=== PATIENT | male | born 1945 | race Caucasian/White ===

== ENCOUNTER → 2017-11-23 | Outpatient (CLI) | payer OTHER, MEDICARE | LOC: NUC 11:37 | DX: I48.1 Persistent atrial fibrillation (principal); I48.3 Typical atrial flutter; E78.5 Hyperlipidemia, unspecified; E11.9 Type 2 diabetes mellitus without complications ==

== ENCOUNTER 2018-06-12 11:11 | Observation (INO) | payer OTHER, MEDICARE ==
[~2018-06-12] VITALS: Ht 177.8 cm; Wt 82.7 kg
[2018-06-12] VITALS (11 sets, daily range): BP systolic 123–154; BP diastolic 70–94
--- NOTE | ~2018-06-12 | P ---
[facility] [place] [address] PROCEDURE REPORT Name: LINO MCDONALD Brittany Room #: 219-P [facility] Vinicio Rodrigez#: [id number] Admission: 06/12/18 Attend Phys: Donald Denson MD Discharge: 06/13/18 Date of : 49 Report #: [id number] THIS REPORT FOR: //name// CC: FAM unknown Donald Denson PREOPERATIVE DIAGNOSIS: Typical atrial flutter. POSTOPERATIVE DIAGNOSIS: Typical atrial flutter. PROCEDURES PERFORMED: 1. SVT ablation, CPT code 09040. 2. EP with left atrial pacing recording, CPT code 67114. 3. Program stimulation and pacing after IV, CPT code 31175. 4. 3D mapping EP, CPT code 36230. HISTORY OF PRESENT ILLNESS: The patient is a 72-year-old with history of atrial fibrillation who underwent prior AFib ablation; at which time, he was also found to have typical atrial flutter and typical AV esla reentrant tachycardia. He underwent ablation of all 3 arrhythmias. When I recently saw him in clinic, he was noted to be back in atrial flutter. He is here for a repeat atrial flutter ablation. ANESTHESIA: The patient underwent MAC anesthesia with no anesthesia related complications. DESCRIPTION OF PROCEDURE: The patient underwent informed consent. We discussed the details of the procedure including the risks which include, but not limited to, bleeding, vascular damage, stroke, DC as well as damage to the [place] conduction system requiring permanent pacemaker. He understood these risks and is willing to proceed. The patient was brought to the EP laboratory in a fasting and unsedated state and prepped and draped in a sterile fashion. I obtained access to the right femoral vein x 3, placing an 8-Cameroonian and two 7-Cameroonian short sheaths using the modified Seldinger technique. Next, under fluoroscopy, I placed a decapolar catheter into the coronary sinus and a live wire duo-decapolar catheter into the right atrium. Since I saw the patient apparently had converted to sinus rhythm, the patient was in sinus rhythm with a sinus cycle length of 1030 milliseconds, [place] interval 170 milliseconds, QRS duration 100 milliseconds, a QT interval of 425 milliseconds. Based on pacing from both medial and lateral to the prior ablation line, there was no evidence of bidirectional block. The transisthmus conduction time while pacing from the CS and measured to Halo 1-2 was 118 milliseconds. Differential pacing from Halos 1-2 and 3-4 were also consistent with lack of lateral to medial block. Next, I placed a ramp sheath and a [employer] ablation catheter into the right atrium. I performed ablation along the cavotricuspid isthmus and created another continuous line. I [address] [address] PROCEDURE REPORT Name: LINO MCDONALD Room #: 219-P [facility] Rodrigez#: [id number] Admission: 06/12/18 Attend Phys: Donald Denson MD Discharge: 06/13/18 Date of : 49 Report #: [id number] performed a series of 2-3 lines along this area and performed additional ablation mostly along the distal third of the isthmus where there continued to be some significant atrial electrograms. Post-ablation medial to lateral block demonstrated a transisthmus conduction time of 145-150 milliseconds. Differential pacing from the Halo 1-2 and 3-4 was also consistent with a lateral to medial block with transisthmus conduction time of 140 milliseconds. There was a double potential along the ablation line of 155 milliseconds when I paced from CS 910. Post-ablation, I performed a basic EP study. AV block was noted at 400 milliseconds. AV elsa ERP was noted at 290 milliseconds at a 500-millisecond basic drive cycle length. The sinus node recovery time was 1130 milliseconds, pacing at 400 milliseconds. Isoproterenol infusion was initiated at 2 mcg per minute and AV block was noted at 340 milliseconds. AV elsa ERP was noted at 340 milliseconds at a 400-millisecond basic drive cycle length. There was no evidence of recurrent typical AV elsa reentrant tachycardia, which was successfully ablated during the last procedure. There were no other forms of tachycardia and the transisthmus conduction time was stable with no recurrent conduction across the line. Post-ablation, the patient was in sinus rhythm with a sinus cycle length of 825 milliseconds, [place] interval 175 milliseconds, QRS duration 95 milliseconds, QT interval 410 milliseconds. As such, all catheters and sheaths were pulled. Hemostasis was obtained and the patient awoke neurologically and hemodynamically intact. CONCLUSIONS: 1. Successful ablation for typical atrial flutter with evidence of bidirectional block. 2. Normal SA elsa function. 3. Normal AV elsa function. 4. Normal His-Purkinje function. 5. No inducible arrhythmias on or off isoproterenol. By: [id number] Donald Denson MD /nt
[~2018-06-12 11:11] MED LIST: ACYCLOVIR 400400 MG PO; HUMALOG100 UNIT/1 SUBQ; LANTUS SUBQ; PRADAXA150 MG PO; PRADAXA75 MG PO; PROTONIX40 M1 PO; SOTALOL 120 MG120 M1 PO
[2018-06-12 11:52] LABS: BASOPHILS 0.7 % (0.0-2.0); HEMATOCRIT 48.3 % (42.0-52.0); HEMOGLOBIN 16.2 gm/dL (14.0-18.0); LYMPHOCYTES 16.5 % (24.0-44.0); MCH 31.4 pg (26.0-34.0); MCHC 33.5 g/dL (28.0-37.0); MCV 93.6 fL (80.0-100.0); PLATELET COUNT 153 thou/uL (150-400); POLYS 67.8 % (36.0-66.0); RBC 5.16 mil/uL (4.50-6.00); RDW 14.1 % (10.5-14.5); WBC 5.9 thou/uL (4.0-11.0)
[2018-06-12 11:59] LABS: CALCIUM 9.2 mg/dL (8.5-10.1); CREATININE 1.3 mg/dL (0.7-1.3); POTASSIUM 3.9 mmol/L (3.5-5.1)
[2018-06-12 12:05] LABS: ALBUMIN 3.9 g/dL (3.4-5.0); TOTAL BILIRUBIN 0.9 mg/dL (<0.1-1.0); TOTAL PROTEIN 7.5 g/dL (6.4-8.2)
[2018-06-12 12:08] LABS: APTT 30.5 Seconds (24.5-32.8); PROTIME 10.7 Seconds (9.3-11.4)
[2018-06-13 00:46] VITALS: BP 131/75
[2018-06-13 04:45] VITALS: BP 136/81
[2018-06-13 08:29] VITALS: BP 141/79
[2018-06-13 10:09] VITALS: BP 141/79
== END 2018-06-13 11:35 | disposition home or self-care (01) ==
LOC: CATH 11:11 → 2N 17:12
PROVIDERS: ADMIT Internal Medicine Cardiovascular Disease
DX: I48.3 Typical atrial flutter (principal); I48.0 Paroxysmal atrial fibrillation; I47.1 Supraventricular tachycardia; I35.0 Nonrheumatic aortic (valve) stenosis; I10 Essential (primary) hypertension; E11.9 Type 2 diabetes mellitus without complications; E78.5 Hyperlipidemia, unspecified; Z23 Encounter for immunization; Z79.4 Long term (current) use of insulin; Z79.899 Other long term (current) drug therapy; Z98.890 Other specified postprocedural states
CPT/HCPCS: 62110; 62900; 70005

== ENCOUNTER 2018-11-01 11:58 | Emergency (ER) | payer OTHER, MEDICARE ==
[~2018-11-01] VITALS: Ht 177.8 cm; Wt 83.9 kg
[2018-11-01 12:24] LABS: HEMATOCRIT 48.6 % (42.0-52.0); HEMOGLOBIN 17.1 gm/dL (14.0-18.0); MCH 32.5 pg (26.0-34.0); MCHC 35.3 g/dL (28.0-37.0); MCV 92.2 fL (80.0-100.0); RBC 5.27 mil/uL (4.50-6.00); RDW 13.7 % (10.5-14.5); WBC 6.8 thou/uL (4.0-11.0)
[2018-11-01 12:28] LABS: CALCIUM 9.5 mg/dL (8.5-10.1); CREATININE 1.2 mg/dL (0.7-1.3); POTASSIUM 4.6 mmol/L (3.5-5.1)
[2018-11-01 12:34] LABS: ALBUMIN 4.1 g/dL (3.4-5.0); DIRECT BILIRUBIN 0.1 mg/dL (<0.1-0.3); TOTAL BILIRUBIN 0.8 mg/dL (<0.1-1.0); TOTAL PROTEIN 7.8 g/dL (6.4-8.2)
[2018-11-01 12:36] LABS: APTT 43.2 Seconds (24.5-32.8); INR 1.1; PROTIME 11.8 Seconds (9.3-11.4)
[2018-11-01] MEDS ORDERED: PLAVIX 75 MG TA75 M1 PO (12:53)
[2018-11-01] MEDS ORDERED: PLAVIX 75 MG TA75 MG PO (12:53)
[2018-11-01 14:03] LABS: URINE BILIRUBIN NEGATIVE (Negative); URINE BLOOD NEGATIVE (Negative); URINE CLARITY CLEAR; URINE COLOR YELLOW; URINE GLUCOSE-RANDOM* 3+ (Negative); URINE KETONES NEGATIVE (Negative); URINE LEUKOCYTES-REFLEX NEGATIVE (Negative); URINE NITRITE-REFLEX NEGATIVE (Negative); URINE PROTEIN (DIPSTICK) NEGATIVE (Negative); URINE UROBILINOGEN 0.2 E.U./dl (0.2-1.0)
[2018-11-01 14:49] VITALS: BP 130/90
--- NOTE | 2018-11-01 15:18 | EKG ---
[place] [address] [employer] [place] [address] ELECTROCARDIOGRAM REPORT Name: ELVA MCDONALDNE Brittany [id number] ������������������ Admission: 11/01/18 ������������������ Attend Phys: Discharge: 11/01/18 ������������������ Date of : 49 Report #: [id number] ����������������������������������������������������������������� [id number] THIS REPORT FOR: //name// [facility] ED Test Date: 2018-11-01 Test Time: 12:05:30 Pat Name: LINO MCDONALD Department: Room: Gender: Timber Hewer: : 1945 Requested By: Sherri Conte Order Number: [id number] MD: Donald Denson Measurements Intervals [place] Rate: 67 P: [place]: QRS: 17 QRSD: 119 T: 54 QT: 400 QTc: 400 Interpretive Statements Atrial flutter Nonspecific intraventricular conduction delay Borderline ST elevation, anterior leads Baseline wander in lead(s) V4 No previous ECG available for comparison Electronically Signed On 11-01-2018 15:18:02 CDT by Donald Denson [email or web address] ��������������������������������������������� <ELECTRONICALLY SIGNED> ���������������������������������������� By: Donald Denson MD ��������������������������������������������� 11/01/18 1518 1204 04 Donald Denson MD /NIKO
== END 2018-11-01 14:50 | disposition home or self-care (01) ==
LOC: ER 11:58
PROVIDERS: Emergency Medicine
DX: E87.8 Other disorders of electrolyte and fluid balance, not elsewhere classified (principal); E11.9 Type 2 diabetes mellitus without complications; I10 Essential (primary) hypertension; E78.5 Hyperlipidemia, unspecified; I48.92 Unspecified atrial flutter; I48.91 Unspecified atrial fibrillation; Z79.4 Long term (current) use of insulin; Z79.899 Other long term (current) drug therapy

== ENCOUNTER → 2018-11-22 | Outpatient (CLI) | payer OTHER, MEDICARE ==
[~2018-11-22] VITALS: Ht 177.8 cm; Wt 83.9 kg
[~2018-11-22] MED LIST changes: +PLAVIX 75 MG TA75 M1 PO; +PLAVIX 75 MG TA75 MG PO
--- NOTE | ~2018-11-22 | P ---
[facility] [place] [address] PROCEDURE REPORT Name: HARRYLINO G Room #: REG [facility] Rain#: [id number] Admission: 11/22/18 ������������������ Attend Phys: Donald Denson MD Discharge: ������������������ Date of : 49 Report #: [id number] THIS REPORT FOR: //name// CC: FAM unknown Donald Denson PREOPERATIVE DIAGNOSIS: Atrial flutter. POSTOPERATIVE DIAGNOSIS: Atrial flutter. DESCRIPTION OF PROCEDURE: The patient underwent informed consent. He was prepped and draped in a sterile fashion. He had patches placed in AP position. Once sedated by the anesthesiology service, he underwent a successful 200 joule synchronized cardioversion with methodist of sinus rhythm. There were no procedure related complications. CONCLUSIONS: Successful DC cardioversion with methodist of sinus rhythm. ��������������������������������������������� ���������������������������������������� By: ��������������������������������������������� 1657 0625 Donald Denson MD /nt
[2018-11-22 11:57] VITALS: BP 145/84
[2018-11-22 12:09] LABS: HEMATOCRIT 48.4 % (42.0-52.0); HEMOGLOBIN 16.7 gm/dL (14.0-18.0); MCH 32.1 pg (26.0-34.0); MCHC 34.5 g/dL (28.0-37.0); MCV 93.2 fL (80.0-100.0); RBC 5.19 mil/uL (4.50-6.00); RDW 13.5 % (10.5-14.5); WBC 5.4 thou/uL (4.0-11.0)
[2018-11-22 12:19] LABS: CALCIUM 9.3 mg/dL (8.5-10.1); CREATININE 1.4 mg/dL (0.7-1.3); POTASSIUM 4.1 mmol/L (3.5-5.1)
[2018-11-22 12:21] LABS: APTT 38.7 Seconds (24.5-32.8); INR 1.1; PROTIME 11.8 Seconds (9.3-11.4)
[2018-11-22 12:26] LABS: ALBUMIN 3.9 g/dL (3.4-5.0); TOTAL PROTEIN 7.2 g/dL (6.4-8.2)
--- NOTE | 2018-11-22 16:16 | EKG ---
[address] [address] ELECTROCARDIOGRAM REPORT Name: ELVA MCDONALDNE Brittany Room #: REG [facility]#: [id number] ������������������ Admission: 11/22/18 ������������������ Attend Phys: Donald Denson MD Discharge: ������������������ Date of : 49 Report #: [id number] ����������������������������������������������������������������� [id number] THIS REPORT FOR: //name// [facility] Test Date: 2018-11-22 Test Time: 12:00:51 Pat Name: LINO MCDONALD Department: Room: Gender: Entry Level Civil Engineer: AGGIE Carr : 1945 Requested By: Donald Denson Order Number: [id number] MD: Ronan Belcher Measurements Intervals [place] Rate: 78 P: [place]: QRS: 36 QRSD: 144 T: 11 QT: 434 QTc: 495 Interpretive Statements Atrial flutter with predominant 3:1 AV block Nonspecific intraventricular conduction delay Compared to ECG 11/01/2018 12:05:30 No significant change Electronically Signed On 11-22-2018 16:16:07 CDT by Ronan Belcher [email or web address] ��������������������������������������������� <ELECTRONICALLY SIGNED> ���������������������������������������� By: Ronan Belcher MD ��������������������������������������������� 11/22/18 1616 D: 05/1199 99 Ronan Belcher MD /NIKO
== END | disposition home or self-care (01) ==
LOC: CATH 11-02 07:02
PROVIDERS: Internal Medicine Cardiovascular Disease
DX: I48.92 Unspecified atrial flutter (principal); I10 Essential (primary) hypertension; E11.9 Type 2 diabetes mellitus without complications; E78.5 Hyperlipidemia, unspecified; I48.91 Unspecified atrial fibrillation; Z98.890 Other specified postprocedural states; Z79.01 Long term (current) use of anticoagulants; Z82.49 Family history of ischemic heart disease and other diseases of the circulatory system; Z79.4 Long term (current) use of insulin; Z79.899 Other long term (current) drug therapy
CPT/HCPCS: 62110; 62900